=== PATIENT | female | born 1970 | race Caucasian/White ===

== ENCOUNTER 2021-04-22 21:54 | Emergency (ER) | payer BC ==
[~2021-04-22] VITALS: Ht 175.3 cm; Wt 59.6 kg
--- NOTE | 2021-04-22 22:36 | PHYS DOC ---
Adult General Chief Complaint Chief Complaint: MECHANICAL FALL HPI HPI Patient is a 50-year-old female who presents with a chief complaint of left wrist and forearm pain after slipping and falling off the stairs. States she did it just before coming to the ED and fell on an outstretched hand. States that pain is 7 out of 10, sharp in nature in her left wrist and left forearm. Denies any other injuries. States she didn't take any medications for this. Review of Systems Review of Systems Review of systems otherwise unremarkable except noted in HPI Physical Exam Physical Exam Constitutional: Well developed, well nourished, no acute distress, non-toxic appearance. [] HENT: Normocephalic, atraumatic, Eyes: conjunctiva normal, no discharge. [] Neck: Normal range of motion, Cardiovascular:Heart rate regular rhythm, no murmur [] Lungs & Thorax: Bilateral breath sounds clear to auscultation [] Back: No tenderness, Extremities: Tenderness and swelling about the left wrist with no obvious bruising and small radial deformity, and tenderness at the distal forearm with no obvious bruising, deformities or swelling. Neurovascular exam intact. Neurologic: Alert and oriented X 3, no focal deficits noted. [] Psychologic: Affect normal, judgement normal, mood normal. [] EKG EKG [] Radiology/Procedures Radiology/Procedures [] EXAMINATION: Left wrist and left forearm radiographs. VIEWS: 3 views of the left wrist and 2 views of the left forearm. COMPARISON: None INDICATION:50 years, Female, fall. FINDINGS/ IMPRESSION: * Acute dorsally angulated comminuted displaced distal radial fracture with intra-articular extension. * Small avulsion fracture of the ulnar styloid process. * Diffuse soft tissue swelling about the wrist. * No dislocation or subluxation. Electronically signed by: Popeye Hernandez MD (04/22/2021 11:01 PM) [facility] Heart Score C/O Chest Pain: No Risk Factors: Risk Factors: DM, Current or recent (<one month) smoker, HTN, HLP, family history of CAD, obesity. Risk Scores: Risk Factors: DM, Current or recent (<one month) smoker, HTN, HLP, family history of CAD, obesity. Course & Med Decision Making Course & Med Decision Making Patient is a 50-year-old female who presents with left wrist and forearm pain after slipping and falling on the stairs Vital signs not concerning. Physical exam noted above. Patient given ice pack and pain medicine. Imaging notable for distal radius fracture with intra-articular extension. Placed in sugar tong splint. Discussed patient with orthopedic surgery to be sure patient can be seen next week. Discussed pain management at home with patient. Gave splint care instructions. Discussed with orthopedic surgery at [place] who felt she was stable to go home tonight and call for clinic next week. Gave contact information for orthopedic surgery and advised to call first thing Saturday morning. Advised to call primary care physician as well first thing Saturday to update on ED visit. Gave strict return precautions to the ED. Patient grateful, verbalized understanding and agreed with plan of discharge. [] Dragon Disclaimer Dragon Disclaimer This electronic medical record was generated, in whole or in part, using a voice recognition dictation system. Departure Departure: Impression: Primary Impression: Distal radius fracture Additional Impression: Fracture of ulnar styloid Disposition: 01 HOME / SELF CARE / HOMELESS Condition: IMPROVED Referrals: SYLVIA BAKER MD (PCP) Patient Instructions: Cast or Splint Care, Radial Fracture Additional Instructions: Thank you for coming into the emergency department tonight and allowing us to take care of you. As discussed you have a fracture of your forearm bones as shown in the picture we went over. Please read all of the attached information very carefully to go back over what we discussed. You can use Tylenol, ibuprofen and ice as well as Benadryl at home for pain control and your prescription pain meds as needed for breakthrough pain. Please call the [facility] orthopedic group first thing Saturday at to discuss your ED visit and set up a follow-up visit next week. Please come back to the emergency department immediately with new or concerning symptoms as discussed. Scripts Hydrocodone Bit/Acetaminophen (HYDROCODONE-APAP 5-325 ) 1 Each Tablet 1 TAB PO PRN Q6HRS PRN for fracture for 5 Days, #20 TAB 0 Refills Prov: MARIE VILLANUEVA MD 04/23/21 Problem Qualifiers MARIE VILLANUEVA MD Apr 22, 2021 22:36
--- NOTE | 2021-04-22 23:04 | RAD ---
EXAMINATION: Left wrist and left forearm radiographs. VIEWS: 3 views of the left wrist and 2 views of the left forearm. COMPARISON: None INDICATION:50 years, Female, fall. FINDINGS/ IMPRESSION: * Acute dorsally angulated comminuted displaced distal radial fracture with intra-articular extensio n. * Small avulsion fracture of the ulnar styloid process. * Diffuse soft tissue swelling about the wrist. * No dislocation or subluxation. Electronically signed by: Popeye Hernandez MD (04/22/2021 11:01 PM) AYDIN
[2021-04-23] MEDS ORDERED: HYDR-2155 PO ×2 (00:37→00:40)
[2021-04-23] MEDS ORDERED: HYDROcodone/APAP 5/325MG 1 TAB TABLET PO ONE (01:00)
[2021-04-23 01:09] VITALS: BP 126/90
== END 2021-04-23 01:13 | disposition home or self-care (01) ==
LOC: ER 21:54
DX: S52.502A Unspecified fracture of the lower end of left radius, initial encounter for closed fracture (principal); S52.612A Displaced fracture of left ulna styloid process, initial encounter for closed fracture; W10.8XXA Fall (on) (from) other stairs and steps, initial encounter; Y93.89 Activity, other specified; Y92.89 Other specified places as the place of occurrence of the external cause; Y99.8 Other external cause status
CPT/HCPCS: 29125; 73090; 73110; 96372; 99284; J3010

== ENCOUNTER → 2021-06-02 | Outpatient (CLI) | payer BC ==
[~2021-06-02] MED LIST: HYDR-2155 PO
--- NOTE | 2021-06-02 08:13 | RAD ---
EXAM: Left wrist, 3 views. HISTORY: Fracture follow-up. COMPARISON: 05/03/2021 FINDINGS: 3 views of the left wrist are obtained. There is internal fixation of a distal radial metap hyseal fracture with a plate and multiple screws. There has been slight interval healing along the fr acture line. There is a stable tiny fracture fragment adjacent to the ulnar styloid. IMPRESSION: 1. Healing distal radial metaphyseal fracture status post internal fixation. 2. No change in a displaced ulnar styloid fracture fragment. Electronically signed by: Radha Tenorio MD (06/02/2021 8:11 AM) [id number]
== END ==
LOC: DXRAD 07:53
PROVIDERS: ATTEND Physician Assistant
DX: S52.502D Unspecified fracture of the lower end of left radius, subsequent encounter for closed fracture with routine healing (principal); X58.XXXD Exposure to other specified factors, subsequent encounter
CPT/HCPCS: 73110

== ENCOUNTER → 2021-06-30 | Outpatient (CLI) | payer BC ==
--- NOTE | 2021-06-30 12:22 | RAD ---
3 views the left wrist compared to similar exam dated June [id number] for left wrist fracture follo w-up. FINDINGS: Minimally impacted fracture distal radius is redemonstrated, with stable appearance of inte rnal plate and screw fixators. There is very slight volar angulation of distal fracture fragment. On the oblique view, there appears to be improved mineralization suggestive of slow but persistent heali ng. IMPRESSION: 1. Stable healing fracture of the distal radius. Electronically signed by: Mauricio Noland MD (06/30/2021 12:19 PM) [id number]
== END ==
LOC: RAD 08:06
PROVIDERS: ATTEND Physician Assistant
DX: S52.502D Unspecified fracture of the lower end of left radius, subsequent encounter for closed fracture with routine healing (principal); X58.XXXD Exposure to other specified factors, subsequent encounter
CPT/HCPCS: 73110